=== PATIENT | male | born 1990 | race Caucasian/White ===

== ENCOUNTER 2017-11-08 22:57 | Emergency (ER) | payer MEDICAID ==
[~2017-11-08] VITALS: Ht 177.8 cm; Wt 116.3 kg
[~2017-11-08 22:57] MED LIST: ACET-890 PO; AMIT-189 PO; ASEN10TA SL; BENZ1TAB7 PO; CITA20TA11 PO; DOCU-28 PO; GABA600T PO; HALO5TAB PO; HYDR12.55 PO; HYDR50TA65 PO; LORA1TAB PO; METH1ADH6 TD; RISP1TAB13 PO
[2017-11-08] MEDS ORDERED: normal saline 1000ml 1,000 ML IV ONE (23:40)
[2017-11-09 00:14] LABS: BASOPHILS # (AUTO) 0.1 X10'3 (0-0.2); BASOPHILS % (AUTO) 0.8 % (0-1); EOSINOPHILS # (AUTO) 0.3 X10'3 (0-0.9); EOSINOPHILS % (AUTO) 2.9 % (0-6); HEMATOCRIT 40.8 % (42.0-52.0); HEMOGLOBIN 14.4 g/dl (14.0-17.9); LYMPHOCYTES # (AUTO) 3.4 X10'3 (1.1-4.8); LYMPHOCYTES % (AUTO) 35.8 % (21-51); MEAN CORPUSCULAR HGB CONC 35.4 % (33.0-36.5); MEAN CORPUSCULAR VOLUME 84.9 FL (78-98); MEAN PLATELET VOLUME 7.2 FL (7.4-10.4); MONOCYTES # (AUTO) 0.7 X10'3 (0-0.9); MONOCYTES % (AUTO) 7.2 % (2-12); NEUTROPHILS % (AUTO) 53.3 % (42-75); PLATELET COUNT 274 X10'3 (140-440); WHITE BLOOD COUNT 9.5 X10'3 (4.5-11.0)
[2017-11-09] MEDS ORDERED: acetaminophen 325mg tablet PO PRN (00:25)
[2017-11-09 00:38] LABS: ALANINE AMINOTRANSFERASE 39 U/L (12-78); ALBUMIN 4.1 G/DL (3.4-5.0); ALBUMIN/GLOBULIN RATIO 1.2 (1.1-1.5); ALKALINE PHOSPHATASE 62 IU/L (46-116); ANION GAP 13 (8-16); ASPARTATE AMINO TRANSFERASE 34 U/L (10-37); BILIRUBIN,TOTAL 0.5 MG/DL (0.1-1.0); BLOOD UREA NITROGEN 18 MG/DL (7-18); BUN/CREATININE RATIO 15.7 (5.4-32.0); CALCIUM 8.9 MG/DL (8.5-10.1); CHLORIDE 105 MMOL/L (99-107); CREATINE KINASE 616 U/L (39-308); CREATININE 1.15 MG/DL (0.60-1.10); ETHANOL < 0.010 GM/DL (0.0-0.010); GLUCOSE 112 MG/DL (70-104); POTASSIUM 3.3 MMOL/L (3.5-5.1); SODIUM 144 MMOL/L (135-145); TOTAL CARBON DIOXIDE 26.2 MMOL/L (24-32); TOTAL PROTEIN 7.6 G/DL (6.4-8.2); eGFR 77 ML/MIN
[2017-11-09 00:47] LABS: ACETAMINOPHEN < 2.0 UG/ML (10-30)
[2017-11-09 02:02] LABS: CLARITY,URINE Clear (Clear); COLOR,URINE Yellow (Yellow); GLUCOSE, URINE Negative (Neg); KETONES,URINE Negative (Neg); LEUKOCYTE ESTERASE ,URINE Negative (Neg); NITRITES, URINE Negative (Neg); OCCULT BLOOD,URINE Negative (Neg); PROTEIN,URINE Negative (Neg)
[2017-11-09 02:04] LABS: UA COLLECTION TYPE STRAIGHT CATH
[2017-11-09 02:40] LABS: URINE AMPHETAMINE SCREEN POSITIVE (Neg); URINE BARBITUATE SCREEN NEGATIVE (Neg); URINE BENZODIAZEPINES SCREEN NEGATIVE (Neg); URINE CANNABINOID SCREEN NEGATIVE (Neg); URINE COCAINE SCREEN NEGATIVE (Neg); URINE METHADONE SCREEN NEGATIVE (Neg); URINE OPIATE SCREEN NEGATIVE (Neg); URINE PHENCYCLIDINE SCREEN NEGATIVE (Neg)
[2017-11-09 03:26] VITALS: BP 112/54
== END 2017-11-09 03:28 | disposition home or self-care (01) ==
LOC: ER 22:58
DX: F20.9 Schizophrenia, unspecified (principal); F31.9 Bipolar disorder, unspecified; F41.9 Anxiety disorder, unspecified; F15.10 Other stimulant abuse, uncomplicated; F12.10 Cannabis abuse, uncomplicated; F17.200 Nicotine dependence, unspecified, uncomplicated; Z88.8 Allergy status to other drugs, medicaments and biological substances
CPT/HCPCS: 36415; 80053; 80305; 80320; 80329; 81003; 82550; 84443; 85025; 96360; 99284; A4353

== ENCOUNTER 2017-12-30 20:41 | Emergency (ER) | payer MEDICAID ==
[~2017-12-30] VITALS: Ht 180.3 cm; Wt 109.1 kg
[~2017-12-30 20:41] MED LIST changes: -AMIT-189 PO; -ASEN10TA SL; -BENZ1TAB7 PO; -CITA20TA11 PO; -DOCU-28 PO; -GABA600T PO; -HALO5TAB PO; -HYDR12.55 PO; -HYDR50TA65 PO; -LORA1TAB PO; -METH1ADH6 TD; -RISP1TAB13 PO
[2017-12-30 21:54] LABS: URINE AMPHETAMINE SCREEN NEGATIVE (Neg); URINE BARBITUATE SCREEN NEGATIVE (Neg); URINE BENZODIAZEPINES SCREEN NEGATIVE (Neg); URINE CANNABINOID SCREEN NEGATIVE (Neg); URINE COCAINE SCREEN NEGATIVE (Neg); URINE METHADONE SCREEN NEGATIVE (Neg); URINE OPIATE SCREEN NEGATIVE (Neg); URINE PHENCYCLIDINE SCREEN NEGATIVE (Neg)
[2017-12-30 22:15] LABS: BASOPHILS % (AUTO) 0.4 % (0-1); EOSINOPHILS # (AUTO) 0.3 X10'3 (0-0.9); EOSINOPHILS % (AUTO) 3.5 % (0-6); HEMATOCRIT 42.6 % (42.0-52.0); HEMOGLOBIN 14.7 g/dl (14.0-17.9); LYMPHOCYTES # (AUTO) 2.5 X10'3 (1.1-4.8); LYMPHOCYTES % (AUTO) 30.2 % (21-51); MEAN CORPUSCULAR HEMOGLOBIN 29.9 PG (27.0-31.0); MEAN CORPUSCULAR HGB CONC 34.6 % (33.0-36.5); MEAN CORPUSCULAR VOLUME 86.3 FL (78-98); MEAN PLATELET VOLUME 6.9 FL (7.4-10.4); MONOCYTES # (AUTO) 0.4 X10'3 (0-0.9); MONOCYTES % (AUTO) 5.2 % (2-12); NEUTROPHILS # (AUTO) 5.1 X10'3 (1.8-7.7); NEUTROPHILS % (AUTO) 60.7 % (42-75); PLATELET COUNT 285 X10'3 (140-440); RED BLOOD COUNT 4.93 X10'6 (4.70-6.10); WHITE BLOOD COUNT 8.3 X10'3 (4.5-11.0)
[2017-12-30 22:30] LABS: ALANINE AMINOTRANSFERASE 34 U/L (12-78); ALBUMIN 3.9 G/DL (3.4-5.0); ALBUMIN/GLOBULIN RATIO 1.1 (1.1-1.5); ALKALINE PHOSPHATASE 78 IU/L (46-116); ANION GAP 14 (8-16); ASPARTATE AMINO TRANSFERASE 16 U/L (10-37); BILIRUBIN,TOTAL 0.4 MG/DL (0.1-1.0); BLOOD UREA NITROGEN 15 MG/DL (7-18); BUN/CREATININE RATIO 17.2 (5.4-32.0); CHLORIDE 103 MMOL/L (99-107); CREATININE 0.87 MG/DL (0.60-1.10); ETHANOL < 0.010 GM/DL (0.0-0.010); GLUCOSE 98 MG/DL (70-104); SODIUM 141 MMOL/L (135-145); TOTAL CARBON DIOXIDE 24.5 MMOL/L (24-32); TOTAL PROTEIN 7.4 G/DL (6.4-8.2); eGFR > 90 ML/MIN
[2017-12-30 23:52] VITALS: BP 134/77
== END 2017-12-31 00:09 | disposition home or self-care (01) ==
LOC: ER 20:42
DX: F25.9 Schizoaffective disorder, unspecified (principal); F41.9 Anxiety disorder, unspecified; F31.9 Bipolar disorder, unspecified; G89.29 Other chronic pain; I10 Essential (primary) hypertension; F12.10 Cannabis abuse, uncomplicated; F15.10 Other stimulant abuse, uncomplicated; Z59.0 Homelessness; Z56.0 Unemployment, unspecified; Z88.8 Allergy status to other drugs, medicaments and biological substances; Z79.899 Other long term (current) drug therapy
CPT/HCPCS: 36415; 80053; 80305; 80320; 82948; 85025; 99284

== ENCOUNTER 2018-08-15 13:00 | Emergency (ER) | payer MEDICAID ==
[~2018-08-15] VITALS: Ht 180.3 cm; Wt 109.0 kg
[2018-08-15 13:34] LABS: BASOPHILS # (AUTO) 0.1 X10'3 (0-0.2); BASOPHILS % (AUTO) 0.8 % (0-1); EOSINOPHILS # (AUTO) 0.2 X10'3 (0-0.9); EOSINOPHILS % (AUTO) 2.2 % (0-6); HEMATOCRIT 43.9 % (42.0-52.0); HEMOGLOBIN 14.6 g/dl (14.0-17.9); LYMPHOCYTES # (AUTO) 2.1 X10'3 (1.1-4.8); LYMPHOCYTES % (AUTO) 29.3 % (21-51); MEAN CORPUSCULAR HEMOGLOBIN 28.9 PG (27.0-31.0); MEAN CORPUSCULAR HGB CONC 33.3 % (33.0-36.5); MEAN CORPUSCULAR VOLUME 86.7 FL (78-98); MEAN PLATELET VOLUME 7.5 FL (7.4-10.4); MONOCYTES # (AUTO) 0.4 X10'3 (0-0.9); MONOCYTES % (AUTO) 5.9 % (2-12); NEUTROPHILS # (AUTO) 4.4 X10'3 (1.8-7.7); NEUTROPHILS % (AUTO) 61.8 % (42-75); PLATELET COUNT 301 X10'3 (140-440); RED BLOOD COUNT 5.06 X10'6 (4.70-6.10); RED CELL DISTRIBUTION WIDTH 13.2 % (11.5-14.5); WHITE BLOOD COUNT 7.1 X10'3 (4.5-11.0)
[2018-08-15 13:55] LABS: ALANINE AMINOTRANSFERASE 41 U/L (12-78); ALBUMIN 4.4 G/DL (3.4-5.0); ALBUMIN/GLOBULIN RATIO 1.5 (1.1-1.5); ALKALINE PHOSPHATASE 81 IU/L (46-116); ANION GAP 10 (8-16); ASPARTATE AMINO TRANSFERASE 30 U/L (10-37); BILIRUBIN,TOTAL 0.6 MG/DL (0.1-1.0); BLOOD UREA NITROGEN 11 MG/DL (7-18); BUN/CREATININE RATIO 10.9 (5.4-32.0); CALCIUM 9.1 MG/DL (8.5-10.1); CHLORIDE 103 MMOL/L (99-107); CREATININE 1.01 MG/DL (0.60-1.10); GLUCOSE 93 MG/DL (70-104); POTASSIUM 3.5 MMOL/L (3.5-5.1); SODIUM 140 MMOL/L (135-145); TOTAL CARBON DIOXIDE 26.7 MMOL/L (24-32); TOTAL PROTEIN 7.3 G/DL (6.4-8.2); eGFR 89 ML/MIN
[2018-08-15 14:05] LABS: ETHANOL < 0.010 GM/DL (0.0-0.010)
[2018-08-15] MEDS ORDERED: NO HOME MEDS (14:49)
[2018-08-15] MEDS ORDERED: risperiDONE 2mg tablet PO ONE (16:05)
[2018-08-15 18:03] LABS: CLARITY,URINE CLEAR (Clear); COLOR,URINE YELLOW (Yellow); GLUCOSE, URINE NEGATIVE (Neg); KETONES,URINE 15 mg/dl (Neg); LEUKOCYTE ESTERASE ,URINE NEGATIVE (Neg); NITRITES, URINE NEGATIVE (Neg); OCCULT BLOOD,URINE NEGATIVE (Neg); PROTEIN,URINE NEGATIVE (Neg); UROBILINOGEN,URINE 0.2 E.U/dL (0.2-1.0)
[2018-08-15 18:07] LABS: UA COLLECTION TYPE CLN CATCH MIDSTREAM
[2018-08-15 18:13] LABS: URINE AMPHETAMINE SCREEN POSITIVE (Neg); URINE BARBITUATE SCREEN NEGATIVE (Neg); URINE BENZODIAZEPINES SCREEN NEGATIVE (Neg); URINE CANNABINOID SCREEN NEGATIVE (Neg); URINE COCAINE SCREEN NEGATIVE (Neg); URINE METHADONE SCREEN NEGATIVE (Neg); URINE OPIATE SCREEN NEGATIVE (Neg); URINE PHENCYCLIDINE SCREEN NEGATIVE (Neg)
[2018-08-15] MEDS ORDERED: risperiDONE 2mg tablet PO SCH (21:00)
[2018-08-16 12:26] VITALS: BP 110/60
== END 2018-08-16 12:15 ==
LOC: ER 13:01
DX: F20.9 Schizophrenia, unspecified (principal); F32.9 Major depressive disorder, single episode, unspecified; F41.9 Anxiety disorder, unspecified; I10 Essential (primary) hypertension; G89.29 Other chronic pain; F15.90 Other stimulant use, unspecified, uncomplicated; Z88.8 Allergy status to other drugs, medicaments and biological substances; Z59.0 Homelessness; Z56.0 Unemployment, unspecified
CPT/HCPCS: 36415; 80053; 80305; 80320; 81003; 84443; 85025; 99285

== ENCOUNTER 2018-09-05 19:33 | Emergency (ER) | payer MEDICAID ==
[~2018-09-05] VITALS: Ht 180.3 cm; Wt 81.8 kg
[~2018-09-05 19:33] MED LIST changes: -ACET-890 PO; +NO HOME MEDS
[2018-09-05 19:58] VITALS: BP 144/101
[2018-09-05 21:06] LABS: BASOPHILS % (AUTO) 0.5 % (0-1); EOSINOPHILS # (AUTO) 0.4 X10'3 (0-0.9); EOSINOPHILS % (AUTO) 5.6 % (0-6); HEMATOCRIT 44.5 % (42.0-52.0); HEMOGLOBIN 14.7 g/dl (14.0-17.9); LYMPHOCYTES # (AUTO) 1.5 X10'3 (1.1-4.8); LYMPHOCYTES % (AUTO) 21.9 % (21-51); MEAN CORPUSCULAR HEMOGLOBIN 29.1 PG (27.0-31.0); MEAN CORPUSCULAR HGB CONC 33.2 % (33.0-36.5); MEAN CORPUSCULAR VOLUME 87.7 FL (78-98); MEAN PLATELET VOLUME 7.6 FL (7.4-10.4); MONOCYTES # (AUTO) 0.5 X10'3 (0-0.9); MONOCYTES % (AUTO) 7.2 % (2-12); NEUTROPHILS # (AUTO) 4.6 X10'3 (1.8-7.7); NEUTROPHILS % (AUTO) 64.8 % (42-75); PLATELET COUNT 290 X10'3 (140-440); RED BLOOD COUNT 5.07 X10'6 (4.70-6.10); RED CELL DISTRIBUTION WIDTH 13.1 % (11.5-14.5)
[2018-09-05 21:19] LABS: ALANINE AMINOTRANSFERASE 35 U/L (12-78); ALBUMIN 4.1 G/DL (3.4-5.0); ALBUMIN/GLOBULIN RATIO 1.2 (1.1-1.5); ALKALINE PHOSPHATASE 91 IU/L (46-116); ANION GAP 10 (8-16); ASPARTATE AMINO TRANSFERASE 28 U/L (10-37); BILIRUBIN,TOTAL 0.4 MG/DL (0.1-1.0); BLOOD UREA NITROGEN 11 MG/DL (7-18); BUN/CREATININE RATIO 11.3 (5.4-32.0); CALCIUM 8.9 MG/DL (8.5-10.1); CHLORIDE 102 MMOL/L (99-107); CREATININE 0.97 MG/DL (0.60-1.10); GLUCOSE 86 MG/DL (70-104); POTASSIUM 3.4 MMOL/L (3.5-5.1); SODIUM 141 MMOL/L (135-145); TOTAL CARBON DIOXIDE 29.1 MMOL/L (24-32); TOTAL PROTEIN 7.5 G/DL (6.4-8.2); eGFR > 90 ML/MIN
--- NOTE | 2018-09-05 21:20 | NUR ---
PT TALKING TO SELF WHILE WAITING FOR TELE PSYCH.
[2018-09-05 21:30] LABS: ETHANOL < 0.010 GM/DL (0.0-0.010)
--- NOTE | 2018-09-05 22:09 | NUR ---
REPORT GIVEN TO SOC MD, WILL BE TALKING TO PT SHORTLY.
--- NOTE | 2018-09-05 22:17 | NUR ---
Pt engaged with SOC telepsychiatrist at this time.
--- NOTE | 2018-09-05 22:36 | NUR ---
Pt informed this group underwriter that he had not eaten lunch or dinner. This group underwriter provided pt with yogurt and apoorva crackers.
--- NOTE | 2018-09-05 22:43 | NUR ---
TELE PSYCH CONSULT COMPLETE, AWAITING REPORT.
--- NOTE | 2018-09-05 23:21 | NUR ---
TELE PSYCH RECOMMENDS DC, DR JENSEN WORKING ON DC INSTRUCTIONS.
== END 2018-09-05 23:37 | disposition home or self-care (01) ==
LOC: ER 19:33
DX: F23 Brief psychotic disorder (principal); F15.10 Other stimulant abuse, uncomplicated; F22 Delusional disorders; I10 Essential (primary) hypertension; G89.29 Other chronic pain; F41.9 Anxiety disorder, unspecified; F31.9 Bipolar disorder, unspecified; Z59.0 Homelessness; Z56.0 Unemployment, unspecified; Z88.8 Allergy status to other drugs, medicaments and biological substances
CPT/HCPCS: 36415; 80053; 80320; 84443; 85025; 99284

== ENCOUNTER 2018-10-20 05:11 | Emergency (ER) | payer MEDICAID ==
[~2018-10-20] VITALS: Ht 177.8 cm; Wt 100.0 kg
[2018-10-20 05:15] VITALS: BP 129/84
--- NOTE | 2018-10-20 05:22 | NUR ---
PLACED PATIENT IN RAP ROOM PER CN
[2018-10-20 06:43] LABS: BASOPHILS % (AUTO) 0.4 % (0-1); EOSINOPHILS # (AUTO) 0.1 X10'3 (0-0.9); EOSINOPHILS % (AUTO) 1.6 % (0-6); HEMATOCRIT 43.5 % (42.0-52.0); LYMPHOCYTES # (AUTO) 1.9 X10'3 (1.1-4.8); LYMPHOCYTES % (AUTO) 21.2 % (21-51); MEAN CORPUSCULAR HEMOGLOBIN 29.9 PG (27.0-31.0); MEAN CORPUSCULAR HGB CONC 34.5 g/dL (33.0-36.5); MEAN CORPUSCULAR VOLUME 86.8 FL (78-98); MEAN PLATELET VOLUME 6.8 FL (7.4-10.4); MONOCYTES # (AUTO) 0.4 X10'3 (0-0.9); MONOCYTES % (AUTO) 4.5 % (2-12); NEUTROPHILS # (AUTO) 6.5 X10'3 (1.8-7.7); NEUTROPHILS % (AUTO) 72.3 % (42-75); PLATELET COUNT 328 X10'3 (140-440); RED CELL DISTRIBUTION WIDTH 13.8 % (11.5-14.5)
--- NOTE | 2018-10-20 06:45 | NUR ---
Assumed care of patient at 0644, proceeded to assess patient in RAP assessment room and patient had eloped per registration. Will contact [employer] regarding patient elopement.
[2018-10-20 06:54] LABS: ALANINE AMINOTRANSFERASE 26 U/L (12-78); ALBUMIN 4.5 G/DL (3.4-5.0); ALBUMIN/GLOBULIN RATIO 1.3 (1.1-1.5); ALKALINE PHOSPHATASE 72 IU/L (46-116); ANION GAP 12 (8-16); ASPARTATE AMINO TRANSFERASE 22 U/L (10-37); BILIRUBIN,TOTAL 0.6 MG/DL (0.1-1.0); BLOOD UREA NITROGEN 16 MG/DL (7-18); BUN/CREATININE RATIO 16.2 (5.4-32.0); CALCIUM 9.1 MG/DL (8.5-10.1); CHLORIDE 101 MMOL/L (99-107); CREATININE 0.99 MG/DL (0.60-1.10); ETHANOL < 0.010 GM/DL (0.0-0.010); GLUCOSE 92 MG/DL (70-104); SODIUM 140 MMOL/L (135-145); eGFR > 90 ML/MIN
--- NOTE | 2018-10-20 07:39 | NUR ---
Spoke with [employer] regarding elopment, information regarding patients attire and concern regarding elopement given to [employer] dispatcher.
== END 2018-10-20 07:59 | disposition left against medical advice (07) ==
LOC: ER 05:12
DX: R45.851 Suicidal ideations (principal); R45.850 Homicidal ideations; F31.9 Bipolar disorder, unspecified; F41.9 Anxiety disorder, unspecified; F20.9 Schizophrenia, unspecified; I10 Essential (primary) hypertension; G89.29 Other chronic pain; F15.90 Other stimulant use, unspecified, uncomplicated; Z56.0 Unemployment, unspecified; Z59.0 Homelessness; Z88.8 Allergy status to other drugs, medicaments and biological substances
CPT/HCPCS: 36415; 80053; 80320; 85025; 99284

== ENCOUNTER 2018-11-04 21:05 | Emergency (ER) | payer MEDICAID ==
[~2018-11-04] VITALS: Ht 180.3 cm; Wt 107.0 kg
[2018-11-04 21:13] VITALS: BP 142/73
--- NOTE | 2018-11-04 21:50 | NUR ---
PT belongings were taken and the belonging log was filled out. PT's belongings are in ambulance bay lockers.
[2018-11-04 22:25] LABS: BASOPHILS # (AUTO) 0.1 X10'3 (0-0.2); BASOPHILS % (AUTO) 0.8 % (0-1); EOSINOPHILS # (AUTO) 0.2 X10'3 (0-0.9); EOSINOPHILS % (AUTO) 1.8 % (0-6); HEMATOCRIT 41.3 % (42.0-52.0); HEMOGLOBIN 14.1 g/dl (14.0-17.9); LYMPHOCYTES # (AUTO) 2.8 X10'3 (1.1-4.8); LYMPHOCYTES % (AUTO) 32.1 % (21-51); MEAN CORPUSCULAR HEMOGLOBIN 29.4 PG (27.0-31.0); MEAN CORPUSCULAR HGB CONC 34.2 g/dL (33.0-36.5); MEAN CORPUSCULAR VOLUME 85.8 FL (78-98); MEAN PLATELET VOLUME 6.4 FL (7.4-10.4); MONOCYTES # (AUTO) 0.6 X10'3 (0-0.9); MONOCYTES % (AUTO) 6.6 % (2-12); NEUTROPHILS # (AUTO) 5.1 X10'3 (1.8-7.7); NEUTROPHILS % (AUTO) 58.7 % (42-75); PLATELET COUNT 398 X10'3 (140-440); RED BLOOD COUNT 4.81 X10'6 (4.70-6.10); RED CELL DISTRIBUTION WIDTH 13.6 % (11.5-14.5); WHITE BLOOD COUNT 8.6 X10'3 (4.5-11.0)
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
[2018-11-04 22:33] LABS: ALANINE AMINOTRANSFERASE 33 U/L (12-78); ALBUMIN 3.8 G/DL (3.4-5.0); ALKALINE PHOSPHATASE 80 IU/L (46-116); ANION GAP 8 (8-16); ASPARTATE AMINO TRANSFERASE 21 U/L (10-37); BILIRUBIN,TOTAL 0.4 MG/DL (0.1-1.0); BLOOD UREA NITROGEN 10 MG/DL (7-18); BUN/CREATININE RATIO 9.9 (5.4-32.0); CALCIUM 8.9 MG/DL (8.5-10.1); CHLORIDE 101 MMOL/L (99-107); CREATININE 1.01 MG/DL (0.60-1.10); GLUCOSE 72 MG/DL (70-104); POTASSIUM 3.7 MMOL/L (3.5-5.1); SODIUM 137 MMOL/L (135-145); TOTAL CARBON DIOXIDE 28.2 MMOL/L (24-32); TOTAL PROTEIN 7.5 G/DL (6.4-8.2); eGFR 89 ML/MIN
[2018-11-04 22:42] LABS: ETHANOL < 0.010 GM/DL (0.0-0.010)
[2018-11-04 22:49] LABS: URINE AMPHETAMINE SCREEN POSITIVE (Neg); URINE BARBITUATE SCREEN NEGATIVE (Neg); URINE BENZODIAZEPINES SCREEN NEGATIVE (Neg); URINE CANNABINOID SCREEN NEGATIVE (Neg); URINE COCAINE SCREEN NEGATIVE (Neg); URINE METHADONE SCREEN NEGATIVE (Neg); URINE OPIATE SCREEN NEGATIVE (Neg); URINE PHENCYCLIDINE SCREEN NEGATIVE (Neg)
--- NOTE | 2018-11-04 23:45 | NUR ---
Report rec'd, assumed care of patient. Patient escorted by Tech to ER OF 27. Assessment completed, and sack meal provided.
--- NOTE | 2018-11-04 23:55 | NUR ---
Telepsych consult initiated.
--- NOTE | 2018-11-05 00:10 | NUR ---
Rec'd call from telepsych provider, report endorsed.
--- NOTE | 2018-11-05 00:24 | NUR ---
Telepsych consult completed.
== END 2018-11-05 01:14 | disposition home or self-care (01) ==
LOC: ER 21:06
DX: F28 Other psychotic disorder not due to a substance or known physiological condition (principal); R45.851 Suicidal ideations; F15.10 Other stimulant abuse, uncomplicated; I10 Essential (primary) hypertension; G89.29 Other chronic pain; F41.9 Anxiety disorder, unspecified; F31.9 Bipolar disorder, unspecified; F12.90 Cannabis use, unspecified, uncomplicated; Z56.0 Unemployment, unspecified; Z59.0 Homelessness; Z88.8 Allergy status to other drugs, medicaments and biological substances; Z88.6 Allergy status to analgesic agent
CPT/HCPCS: 36415; 80053; 80305; 80320; 85025; 99284

== ENCOUNTER 2018-12-12 13:40 | Emergency (ER) | payer MEDICAID ==
[~2018-12-12] VITALS: Ht 180.3 cm; Wt 104.5 kg
[2018-12-12 14:58] LABS: BASOPHILS # (AUTO) 0.1 X10'3 (0-0.2); BASOPHILS % (AUTO) 0.9 % (0-1); EOSINOPHILS # (AUTO) 0.3 X10'3 (0-0.9); EOSINOPHILS % (AUTO) 5.4 % (0-6); HEMATOCRIT 40.7 % (42.0-52.0); HEMOGLOBIN 13.6 g/dl (14.0-17.9); LYMPHOCYTES # (AUTO) 2.1 X10'3 (1.1-4.8); LYMPHOCYTES % (AUTO) 37.4 % (21-51); MEAN CORPUSCULAR HEMOGLOBIN 28.9 PG (27.0-31.0); MEAN CORPUSCULAR HGB CONC 33.3 g/dL (33.0-36.5); MEAN CORPUSCULAR VOLUME 86.8 FL (78-98); MONOCYTES # (AUTO) 0.3 X10'3 (0-0.9); MONOCYTES % (AUTO) 5.9 % (2-12); NEUTROPHILS # (AUTO) 2.8 X10'3 (1.8-7.7); NEUTROPHILS % (AUTO) 50.4 % (42-75); PLATELET COUNT 235 X10'3 (140-440); RED BLOOD COUNT 4.69 X10'6 (4.70-6.10); RED CELL DISTRIBUTION WIDTH 13.6 % (11.5-14.5); WHITE BLOOD COUNT 5.5 X10'3 (4.5-11.0)
[2018-12-12] MEDS ORDERED: NO HOME MEDS (15:00)
[2018-12-12 15:08] LABS: ALANINE AMINOTRANSFERASE 44 U/L (12-78); ALBUMIN 3.6 G/DL (3.4-5.0); ALBUMIN/GLOBULIN RATIO 1.1 (1.1-1.5); ALKALINE PHOSPHATASE 72 IU/L (46-116); ANION GAP 8 (8-16); ASPARTATE AMINO TRANSFERASE 37 U/L (10-37); BILIRUBIN,TOTAL 0.3 MG/DL (0.1-1.0); BLOOD UREA NITROGEN 13 MG/DL (7-18); BUN/CREATININE RATIO 14.8 (5.4-32.0); CALCIUM 8.8 MG/DL (8.5-10.1); CHLORIDE 103 MMOL/L (99-107); CREATININE 0.88 MG/DL (0.60-1.10); ETHANOL < 0.010 GM/DL (0.0-0.010); GLUCOSE 88 MG/DL (70-104); SODIUM 139 MMOL/L (135-145); TOTAL CARBON DIOXIDE 28.1 MMOL/L (24-32); TOTAL PROTEIN 6.8 G/DL (6.4-8.2); eGFR > 90 ML/MIN
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
--- NOTE | 2018-12-12 16:08 | NUR ---
Pt. moved into room 16 from hallway 13. Report given to Lopez ALAS.
[2018-12-12 16:15] LABS: CLARITY,URINE CLEAR (Clear); COLOR,URINE YELLOW (Yellow); GLUCOSE, URINE NEGATIVE (Neg); KETONES,URINE NEGATIVE (Neg); LEUKOCYTE ESTERASE ,URINE NEGATIVE (Neg); NITRITES, URINE NEGATIVE (Neg); OCCULT BLOOD,URINE NEGATIVE (Neg); PROTEIN,URINE NEGATIVE (Neg); UROBILINOGEN,URINE 0.2 E.U/dL (0.2-1.0)
[2018-12-12 16:20] LABS: UA COLLECTION TYPE CLN CATCH MIDSTREAM
[2018-12-12 16:28] LABS: URINE AMPHETAMINE SCREEN NEGATIVE (Neg); URINE BARBITUATE SCREEN NEGATIVE (Neg); URINE BENZODIAZEPINES SCREEN NEGATIVE (Neg); URINE CANNABINOID SCREEN NEGATIVE (Neg); URINE COCAINE SCREEN NEGATIVE (Neg); URINE METHADONE SCREEN NEGATIVE (Neg); URINE OPIATE SCREEN NEGATIVE (Neg); URINE PHENCYCLIDINE SCREEN NEGATIVE (Neg)
--- NOTE | 2018-12-12 18:25 | NUR ---
Pt status just changed from 179 to 5150, per [facility] recommendation. Pt reports S/I with an attempt by placing hand gun to head. Pt denies audio/visual hallucinations at this time. Pt reports new medication start in past 2 wks for Bipolar schizoaffective dx.
--- NOTE | 2018-12-13 05:30 | NUR ---
PT TRANSFERRED FROM ED16 TO OF21, ESCORTED BY SUSAN AND PAULA, pct
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
[2018-12-13] MEDS ORDERED: FLUoxetine 20mg capsule PO SCH (08:39)
[2018-12-13] MEDS ORDERED: propranolol 10mg tablet PO SCH (08:40)
--- NOTE | 2018-12-13 10:30 | NUR ---
Call received from Kurt Salcido RN, Charge Nurse [facility] for nurse to nurse report on patient.
[2018-12-13] MEDS ORDERED: FLUO20CA39 PO (10:52)
[2018-12-13] MEDS ORDERED: RISP4TAB7 PO (10:52)
[2018-12-13] MEDS ORDERED: PROP10TA10 PO (10:52)
--- NOTE | 2018-12-13 11:05 | NUR ---
Call received from Kurt Salcido RN, stating that patient had been accepted at [facility]. Jacklyn De Paz from [facility] notified. Discharge orders received from Dr. Agudelo.
[2018-12-13 11:26] VITALS: BP 100/54
[2018-12-13] MEDS ORDERED: risperiDONE 2mg tablet PO SCH (21:00)
== END 2018-12-13 11:32 ==
LOC: ER 13:41
DX: F32.9 Major depressive disorder, single episode, unspecified (principal); F41.9 Anxiety disorder, unspecified; F20.9 Schizophrenia, unspecified; I10 Essential (primary) hypertension; G89.29 Other chronic pain; F12.90 Cannabis use, unspecified, uncomplicated; F15.90 Other stimulant use, unspecified, uncomplicated; Z56.0 Unemployment, unspecified; Z59.0 Homelessness; Z88.8 Allergy status to other drugs, medicaments and biological substances
CPT/HCPCS: 36415; 80053; 80305; 80320; 81003; 85025; 99285

== ENCOUNTER 2018-12-13 10:30 | Inpatient (IN) | payer MEDICAID | END 2018-12-16 15:15 | disposition short-term general hospital (02) | LOC: ADULT MH 10:30 | DX: T14.91XA Suicide attempt, initial encounter (principal); F32.9 Major depressive disorder, single episode, unspecified ==

== ENCOUNTER 2018-12-20 11:58 | Emergency (ER) | payer MEDICAID ==
[~2018-12-20] VITALS: Ht 180.3 cm; Wt 86.0 kg
[~2018-12-20 11:58] MED LIST changes: +FLUO20CA22 PO; +HYDR-3686 PO; -NO HOME MEDS; +PALI3TAB5 PO; +PROP10TA10 PO; +RISP4TAB7 PO
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
[2018-12-20 13:00] LABS: URINE AMPHETAMINE SCREEN POSITIVE (Neg); URINE BARBITUATE SCREEN NEGATIVE (Neg); URINE BENZODIAZEPINES SCREEN NEGATIVE (Neg); URINE CANNABINOID SCREEN NEGATIVE (Neg); URINE COCAINE SCREEN NEGATIVE (Neg); URINE METHADONE SCREEN NEGATIVE (Neg); URINE OPIATE SCREEN NEGATIVE (Neg); URINE PHENCYCLIDINE SCREEN NEGATIVE (Neg)
[2018-12-20 13:00] LABS: BASOPHILS % (AUTO) 0.6 % (0-1); EOSINOPHILS # (AUTO) 0.2 X10'3 (0-0.9); EOSINOPHILS % (AUTO) 2.6 % (0-6); HEMOGLOBIN 13.9 g/dl (14.0-17.9); LYMPHOCYTES # (AUTO) 2.4 X10'3 (1.1-4.8); LYMPHOCYTES % (AUTO) 40.2 % (21-51); MEAN CORPUSCULAR HEMOGLOBIN 29.2 PG (27.0-31.0); MEAN CORPUSCULAR HGB CONC 33.9 g/dL (33.0-36.5); MEAN CORPUSCULAR VOLUME 86.2 FL (78-98); MEAN PLATELET VOLUME 6.9 FL (7.4-10.4); MONOCYTES # (AUTO) 0.5 X10'3 (0-0.9); MONOCYTES % (AUTO) 7.9 % (2-12); NEUTROPHILS # (AUTO) 2.9 X10'3 (1.8-7.7); NEUTROPHILS % (AUTO) 48.7 % (42-75); PLATELET COUNT 300 X10'3 (140-440); RED BLOOD COUNT 4.76 X10'6 (4.70-6.10); RED CELL DISTRIBUTION WIDTH 13.6 % (11.5-14.5)
[2018-12-20 13:07] LABS: ALANINE AMINOTRANSFERASE 33 U/L (12-78); ALBUMIN 4.1 G/DL (3.4-5.0); ALBUMIN/GLOBULIN RATIO 1.2 (1.1-1.5); ALKALINE PHOSPHATASE 73 IU/L (46-116); ANION GAP 9 (8-16); ASPARTATE AMINO TRANSFERASE 23 U/L (10-37); BILIRUBIN,TOTAL 0.8 MG/DL (0.1-1.0); BLOOD UREA NITROGEN 12 MG/DL (7-18); BUN/CREATININE RATIO 12.6 (5.4-32.0); CALCIUM 9.3 MG/DL (8.5-10.1); CHLORIDE 101 MMOL/L (99-107); CREATININE 0.95 MG/DL (0.60-1.10); ETHANOL < 0.010 GM/DL (0.0-0.010); GLUCOSE 96 MG/DL (70-104); POTASSIUM 3.8 MMOL/L (3.5-5.1); SODIUM 138 MMOL/L (135-145); TOTAL CARBON DIOXIDE 28.3 MMOL/L (24-32); TOTAL PROTEIN 7.6 G/DL (6.4-8.2); eGFR > 90 ML/MIN
[2018-12-20 13:11] LABS: CLARITY,URINE CLOUDY (Clear); COLOR,URINE YELLOW (Yellow); GLUCOSE, URINE NEGATIVE (Neg); KETONES,URINE NEGATIVE (Neg); LEUKOCYTE ESTERASE ,URINE NEGATIVE (Neg); NITRITES, URINE NEGATIVE (Neg); OCCULT BLOOD,URINE TRACE-INTACT (Neg); PH,URINE 8.5 (4.8-8.0); PROTEIN,URINE NEGATIVE (Neg); UROBILINOGEN,URINE 0.2 E.U/dL (0.2-1.0)
[2018-12-20 13:14] LABS: UA COLLECTION TYPE CLN CATCH MIDSTREAM
[2018-12-20] MEDS ORDERED: FLUO20CA39 PO (13:25)
[2018-12-20] MEDS ORDERED: PROP10TA10 PO (13:25)
[2018-12-20] MEDS ORDERED: HYDR-3686 PO (13:25)
[2018-12-20] MEDS ORDERED: RISP4TAB7 PO (13:25)
[2018-12-20] MEDS ORDERED: PALI6TAB PO (13:25)
[2018-12-20 13:29] LABS: MUCUS STRANDS FEW /LPF (Neg); SQUAMOUS EPITHELIAL CELL,UR FEW /LPF (FEW); WBC,URINE 0-4 /HPF (0-4)
[2018-12-20 13:30] LABS: AMORPHOUS PHOSPHATES 3+; BACTERIA,URINE NONE SEEN /HPF (Neg)
--- NOTE | 2018-12-20 13:39 | NUR ---
Called [facility] and spoke to Allison. She informed me their provider would not be seing this pt. Spoke with Dr Webb and got order for telepsych. SOC called and pt placed in queue.
[2018-12-20] MEDS ORDERED: hydrOXYzine 25 MG tablet PO PRN (13:55)
[2018-12-20 14:51] VITALS: BP 134/94
[2018-12-20] MEDS ORDERED: propranolol 10mg tablet PO SCH (20:00)
[2018-12-20] MEDS ORDERED: risperiDONE 2mg tablet PO SCH (21:00)
[2018-12-21] MEDS ORDERED: PALIPERIDONE 3 MG TAB.ER.24 PO SCH (08:00)
[2018-12-21] MEDS ORDERED: FLUoxetine 20mg capsule PO SCH (08:00)
== END 2018-12-20 14:54 | disposition home or self-care (01) ==
LOC: ER 11:58
DX: F15.20 Other stimulant dependence, uncomplicated (principal); I10 Essential (primary) hypertension; G89.29 Other chronic pain; F41.9 Anxiety disorder, unspecified; F20.9 Schizophrenia, unspecified; F31.9 Bipolar disorder, unspecified; F12.90 Cannabis use, unspecified, uncomplicated; Z59.0 Homelessness; Z56.0 Unemployment, unspecified; Z88.8 Allergy status to other drugs, medicaments and biological substances; Z79.899 Other long term (current) drug therapy
CPT/HCPCS: 36415; 80053; 80305; 80320; 81001; 85025; 99283

== ENCOUNTER 2019-01-06 16:36 | Emergency (ER) | payer MEDICAID ==
[~2019-01-06] VITALS: Ht 332.7 cm; Wt 81.8 kg
[~2019-01-06 16:36] MED LIST changes: -FLUO20CA22 PO; +FLUO20CA39 PO; -PALI3TAB5 PO; +PALI6TAB PO
--- NOTE | 2019-01-06 17:12 | NUR ---
Pt brought into ED by a friend w/a suicide plan to kill self w/a gun. Pt father two days ago and he reports he no longer wants to live. Pt brought to [facility] in street clothes from Triage. Personl property inventoried by ASCENCION Trinh and placed in [facility] locker. UA complete and labs drawn. Pt in bed on his right side w/his eyes closed.
[2019-01-06 17:32] LABS: BASOPHILS # (AUTO) 0.1 X10'3 (0-0.2); BASOPHILS % (AUTO) 1.1 % (0-1); EOSINOPHILS # (AUTO) 0.5 X10'3 (0-0.9); EOSINOPHILS % (AUTO) 6.7 % (0-6); HEMATOCRIT 42.2 % (42.0-52.0); HEMOGLOBIN 14.5 g/dl (14.0-17.9); LYMPHOCYTES # (AUTO) 2.7 X10'3 (1.1-4.8); LYMPHOCYTES % (AUTO) 39.7 % (21-51); MEAN CORPUSCULAR HEMOGLOBIN 29.7 PG (27.0-31.0); MEAN CORPUSCULAR HGB CONC 34.3 g/dL (33.0-36.5); MEAN CORPUSCULAR VOLUME 86.8 FL (78-98); MEAN PLATELET VOLUME 7.1 FL (7.4-10.4); MONOCYTES # (AUTO) 0.5 X10'3 (0-0.9); NEUTROPHILS # (AUTO) 3.1 X10'3 (1.8-7.7); NEUTROPHILS % (AUTO) 45.5 % (42-75); PLATELET COUNT 257 X10'3 (140-440); RED BLOOD COUNT 4.86 X10'6 (4.70-6.10); RED CELL DISTRIBUTION WIDTH 13.6 % (11.5-14.5); WHITE BLOOD COUNT 6.8 X10'3 (4.5-11.0)
[2019-01-06 17:43] LABS: ALANINE AMINOTRANSFERASE 24 U/L (12-78); ALBUMIN 3.5 G/DL (3.4-5.0); ALKALINE PHOSPHATASE 74 IU/L (46-116); ANION GAP 10 (8-16); ASPARTATE AMINO TRANSFERASE 13 U/L (10-37); BILIRUBIN,TOTAL 0.2 MG/DL (0.1-1.0); BLOOD UREA NITROGEN 9 MG/DL (7-18); BUN/CREATININE RATIO 9.9 (5.4-32.0); CALCIUM 8.7 MG/DL (8.5-10.1); CHLORIDE 105 MMOL/L (99-107); CREATININE 0.91 MG/DL (0.60-1.10); GLUCOSE 85 MG/DL (70-104); POTASSIUM 3.9 MMOL/L (3.5-5.1); SODIUM 142 MMOL/L (135-145); TOTAL CARBON DIOXIDE 27.4 MMOL/L (24-32); TOTAL PROTEIN 6.9 G/DL (6.4-8.2); eGFR > 90 ML/MIN
[2019-01-06 17:54] LABS: ETHANOL < 0.010 GM/DL (0.0-0.010)
[2019-01-06 17:57] LABS: CLARITY,URINE SLIGHTLY CLOUDY (Clear); COLOR,URINE YELLOW (Yellow); GLUCOSE, URINE NEGATIVE (Neg); KETONES,URINE NEGATIVE (Neg); LEUKOCYTE ESTERASE ,URINE NEGATIVE (Neg); NITRITES, URINE NEGATIVE (Neg); OCCULT BLOOD,URINE NEGATIVE (Neg); PROTEIN,URINE NEGATIVE (Neg); UROBILINOGEN,URINE 0.2 E.U/dL (0.2-1.0)
[2019-01-06] MEDS ORDERED: RISP1TAB3 PO (17:58)
[2019-01-06] MEDS ORDERED: HYDR50TA65 PO (17:58)
[2019-01-06] MEDS ORDERED: FLUO-1 PO (17:58)
[2019-01-06] MEDS ORDERED: PALI6TAB6 PO (17:58)
[2019-01-06] MEDS ORDERED: PROP20TA6 PO (17:58)
[2019-01-06 18:04] LABS: URINE AMPHETAMINE SCREEN POSITIVE (Neg); URINE BARBITUATE SCREEN NEGATIVE (Neg); URINE BENZODIAZEPINES SCREEN NEGATIVE (Neg); URINE CANNABINOID SCREEN NEGATIVE (Neg); URINE COCAINE SCREEN NEGATIVE (Neg); URINE METHADONE SCREEN NEGATIVE (Neg); URINE OPIATE SCREEN NEGATIVE (Neg); URINE PHENCYCLIDINE SCREEN NEGATIVE (Neg)
[2019-01-06 18:20] LABS: UA COLLECTION TYPE VOIDED
[2019-01-06 18:28] LABS: AMORPHOUS PHOSPHATES 4+; BACTERIA,URINE NONE SEEN /HPF (Neg); RBC,URINE NONE SEEN /HPF (0-2); SQUAMOUS EPITHELIAL CELL,UR FEW /LPF (FEW); WBC,URINE 0-4 /HPF (0-4)
[2019-01-06] MEDS ORDERED: propranolol 10mg tablet PO SCH (20:00)
--- NOTE | 2019-01-06 20:36 | NUR ---
Pt is resting in bed, pt states he is still suicidal and his plan is to shoot himself. Pt has a right sided facial droop, physicians aware, being seen as note is written.
--- NOTE | 2019-01-06 23:30 | NUR ---
Physicians saw pt, wanted telesyph ordered. Boat Mechanic ordered telesyph and called. Waiting call back. At this time pt is resting in bed quietly on R side.
--- NOTE | 2019-01-07 00:52 | NUR ---
Telespych completed. Pt now resting in bed.
[2019-01-07 03:27] VITALS: BP 108/54
[2019-01-07] MEDS ORDERED: FLUoxetine 20mg capsule PO SCH (08:00)
[2019-01-07] MEDS ORDERED: MECL-111 PO (19:47)
== END 2019-01-07 03:03 | disposition home or self-care (01) ==
LOC: ER 16:36
DX: R45.851 Suicidal ideations (principal); F31.9 Bipolar disorder, unspecified; I10 Essential (primary) hypertension; G89.29 Other chronic pain; F41.9 Anxiety disorder, unspecified; F20.9 Schizophrenia, unspecified; F12.90 Cannabis use, unspecified, uncomplicated; F15.90 Other stimulant use, unspecified, uncomplicated; Z59.0 Homelessness; Z56.0 Unemployment, unspecified; Z88.8 Allergy status to other drugs, medicaments and biological substances; Z79.899 Other long term (current) drug therapy
CPT/HCPCS: 36415; 80053; 80305; 80320; 81001; 84443; 85025; 99284

== ENCOUNTER 2019-03-22 22:51 | Emergency (ER) | payer MEDICAID ==
[~2019-03-22] VITALS: Ht 177.8 cm; Wt 86.6 kg
[~2019-03-22 22:51] MED LIST changes: -HYDR-3686 PO; +MECL-111 PO; -PALI6TAB PO; -PROP10TA10 PO; +PROP20TA6 PO; +RISP1TAB3 PO; -RISP4TAB7 PO
[2019-03-22] MEDS ORDERED: HYDR-4383 PO (23:35)
[2019-03-22 23:54] VITALS: BP 131/75
== END 2019-03-22 23:50 | disposition home or self-care (01) ==
LOC: ER 22:51
DX: S02.66 Fracture of symphysis of mandible (principal); G89.18 Other acute postprocedural pain; R68.84 Jaw pain; I10 Essential (primary) hypertension; G89.29 Other chronic pain; F41.9 Anxiety disorder, unspecified; F31.9 Bipolar disorder, unspecified; F20.9 Schizophrenia, unspecified; F12.90 Cannabis use, unspecified, uncomplicated; F15.90 Other stimulant use, unspecified, uncomplicated; Z88.8 Allergy status to other drugs, medicaments and biological substances; Z79.899 Other long term (current) drug therapy; Z59.0 Homelessness; Z56.0 Unemployment, unspecified; Y04.2XXD Assault by strike against or bumped into by another person, subsequent encounter
CPT/HCPCS: 99283

== ENCOUNTER 2019-03-25 09:13 | Emergency (ER) | payer MEDICAID ==
[~2019-03-25] VITALS: Ht 180.3 cm; Wt 105.2 kg
[~2019-03-25 09:13] MED LIST changes: +HYDR-4383 PO
--- NOTE | 2019-03-25 09:24 | NUR ---
DUSTIN CHARGE NURSE AWARE OF PT, PT STATES UNABLE TO PROVIDE URINE SAMPLE JUST WENT, PT PLACED IN RAP WAITING ROOM WHILE BED 13 IS BEING PREPARED. PT IS CALM AND AGREEABLE TO PLAN
[2019-03-25 09:51] LABS: BASOPHILS # (AUTO) 0.1 X10'3 (0-0.2); BASOPHILS % (AUTO) 0.6 % (0-1); EOSINOPHILS # (AUTO) 0.4 X10'3 (0-0.9); EOSINOPHILS % (AUTO) 4.7 % (0-6); HEMATOCRIT 40.1 % (42.0-52.0); HEMOGLOBIN 13.7 g/dl (14.0-17.9); LYMPHOCYTES # (AUTO) 2.3 X10'3 (1.1-4.8); LYMPHOCYTES % (AUTO) 29.3 % (21-51); MEAN CORPUSCULAR HEMOGLOBIN 29.4 PG (27.0-31.0); MEAN CORPUSCULAR VOLUME 86.2 FL (78-98); MEAN PLATELET VOLUME 6.8 FL (7.4-10.4); MONOCYTES # (AUTO) 0.5 X10'3 (0-0.9); MONOCYTES % (AUTO) 5.9 % (2-12); NEUTROPHILS # (AUTO) 4.7 X10'3 (1.8-7.7); NEUTROPHILS % (AUTO) 59.5 % (42-75); PLATELET COUNT 308 X10'3 (140-440); RED BLOOD COUNT 4.65 X10'6 (4.70-6.10); RED CELL DISTRIBUTION WIDTH 14.3 % (11.5-14.5); WHITE BLOOD COUNT 7.9 X10'3 (4.5-11.0)
[2019-03-25 10:05] LABS: ALANINE AMINOTRANSFERASE 23 U/L (12-78); ALBUMIN 3.4 G/DL (3.4-5.0); ALKALINE PHOSPHATASE 103 IU/L (46-116); ANION GAP 6 (8-16); ASPARTATE AMINO TRANSFERASE 9 U/L (10-37); BILIRUBIN,TOTAL 0.3 MG/DL (0.1-1.0); BLOOD UREA NITROGEN 10 MG/DL (7-18); BUN/CREATININE RATIO 13.2 (5.4-32.0); CHLORIDE 106 MMOL/L (99-107); CREATININE 0.76 MG/DL (0.60-1.10); GLUCOSE 87 MG/DL (70-104); POTASSIUM 3.8 MMOL/L (3.5-5.1); SODIUM 138 MMOL/L (135-145); TOTAL CARBON DIOXIDE 26.2 MMOL/L (24-32); TOTAL PROTEIN 6.7 G/DL (6.4-8.2); eGFR > 90 ML/MIN
[2019-03-25 10:07] LABS: ETHANOL < 0.010 GM/DL (0.0-0.010)
--- NOTE | 2019-03-25 11:44 | NUR ---
PT UP TO BATHROOM WITH RADHA
[2019-03-25 12:07] LABS: URINE AMPHETAMINE SCREEN NEGATIVE (Neg); URINE BARBITUATE SCREEN NEGATIVE (Neg); URINE BENZODIAZEPINES SCREEN NEGATIVE (Neg); URINE CANNABINOID SCREEN NEGATIVE (Neg); URINE COCAINE SCREEN NEGATIVE (Neg); URINE METHADONE SCREEN NEGATIVE (Neg); URINE OPIATE SCREEN POSITIVE (Neg); URINE PHENCYCLIDINE SCREEN NEGATIVE (Neg)
--- NOTE | 2019-03-25 12:25 | NUR ---
PACKET FAXED TO [facility]
--- NOTE | 2019-03-25 13:48 | NUR ---
PT ASSISTED TO THE RESTROOM,PT COOPERATIVE FOLLOW COMMANDS.
--- NOTE | 2019-03-25 14:32 | NUR ---
PT RESING IN BED WITH BLANKET ON,NO DISTRESS NOTED,WILL CONT TO MONITOR.
--- NOTE | 2019-03-25 15:35 | NUR ---
pt resting in bed asked about the medication he takes ,pt said he only take invega,pt said he does not remember about any other medication read the medication to pt but unable to recall.
--- NOTE | 2019-03-25 17:07 | NUR ---
pt sleeping at this time.no distress noted ,will cont to monitor.
--- NOTE | 2019-03-25 19:00 | NUR ---
Pt eating dinner.
--- NOTE | 2019-03-25 20:00 | NUR ---
Pt resting quietly, respirations normal, no s/s of distress.
--- NOTE | 2019-03-25 21:05 | NUR ---
Pt resting quietly, respirations normal, no s/s of distress.
--- NOTE | 2019-03-25 22:00 | NUR ---
Pt resting quietly, respirations normal, no s/s of distress.
--- NOTE | 2019-03-25 23:20 | NUR ---
Pt resting quietly, respirations normal, no s/s of distress.
--- NOTE | 2019-03-26 00:15 | NUR ---
Pt offered another blanket. Pt resting quietly, respirations normal, no s/s of distress.
--- NOTE | 2019-03-26 01:45 | NUR ---
Pt resting quietly, respirations normal, no s/s of distress.
--- NOTE | 2019-03-26 03:00 | NUR ---
Pt resting quietly, respirations normal, no s/s of distress.
--- NOTE | 2019-03-26 03:46 | NUR ---
Pt resting quietly, respirations normal, no s/s of distress.
--- NOTE | 2019-03-26 04:46 | NUR ---
Pt resting quietly, respirations normal, no s/s of distress.
--- NOTE | 2019-03-26 11:11 | NUR ---
PT RESTING ,IN NO ACUTE DISTRESS.
[2019-03-26] MEDS ORDERED: LORazepam 1 MG tablet PO ONE (16:35)
[2019-03-26 17:15] VITALS: BP 111/67
--- NOTE | 2019-03-26 22:14 | NUR ---
Pt was given a brown bag lunch upon discharge.
== END 2019-03-26 22:18 | disposition home or self-care (01) ==
LOC: ER 09:14
DX: R45.851 Suicidal ideations (principal); F31.9 Bipolar disorder, unspecified; F41.9 Anxiety disorder, unspecified; F20.9 Schizophrenia, unspecified; G89.29 Other chronic pain; I10 Essential (primary) hypertension; F12.90 Cannabis use, unspecified, uncomplicated; F15.90 Other stimulant use, unspecified, uncomplicated; Z56.0 Unemployment, unspecified; Z59.0 Homelessness; Z88.8 Allergy status to other drugs, medicaments and biological substances; Z79.899 Other long term (current) drug therapy
CPT/HCPCS: 36415; 80053; 80305; 80320; 85025; 99284

== ENCOUNTER 2019-04-05 14:29 | Emergency (ER) | payer MEDICAID ==
[~2019-04-05] VITALS: Ht 180.3 cm; Wt 101.3 kg
[2019-04-05 14:58] LABS: COLOR,URINE YELLOW (Yellow); GLUCOSE, URINE NEGATIVE (Neg); KETONES,URINE NEGATIVE (Neg); LEUKOCYTE ESTERASE ,URINE NEGATIVE (Neg); NITRITES, URINE NEGATIVE (Neg); OCCULT BLOOD,URINE NEGATIVE (Neg); PROTEIN,URINE 30 mg/dl (Neg); UROBILINOGEN,URINE 0.2 E.U/dL (0.2-1.0)
[2019-04-05 15:03] LABS: URINE AMPHETAMINE SCREEN POSITIVE (Neg); URINE BARBITUATE SCREEN NEGATIVE (Neg); URINE BENZODIAZEPINES SCREEN NEGATIVE (Neg); URINE CANNABINOID SCREEN NEGATIVE (Neg); URINE COCAINE SCREEN NEGATIVE (Neg); URINE METHADONE SCREEN NEGATIVE (Neg); URINE OPIATE SCREEN NEGATIVE (Neg); URINE PHENCYCLIDINE SCREEN NEGATIVE (Neg)
[2019-04-05 15:06] LABS: CLARITY,URINE SLIGHTLY CLOUDY (Clear); UA COLLECTION TYPE CLN CATCH MIDSTREAM
[2019-04-05 15:07] LABS: MUCUS STRANDS MANY /LPF (Neg); RBC,URINE 0-2 /HPF (0-2); SQUAMOUS EPITHELIAL CELL,UR FEW /LPF (FEW); WBC,URINE 0-4 /HPF (0-4)
[2019-04-05 15:08] LABS: BACTERIA,URINE FEW /HPF (Neg)
[2019-04-05 15:09] LABS: AMORPHOUS URATES 1+; SPERM FEW /HPF (NEGATIVE)
[2019-04-05 15:36] LABS: BASOPHILS % (AUTO) 0.5 % (0-1); EOSINOPHILS # (AUTO) 0.1 X10'3 (0-0.9); EOSINOPHILS % (AUTO) 0.7 % (0-6); HEMATOCRIT 39.3 % (42.0-52.0); HEMOGLOBIN 13.2 g/dl (14.0-17.9); LYMPHOCYTES # (AUTO) 2.3 X10'3 (1.1-4.8); LYMPHOCYTES % (AUTO) 24.5 % (21-51); MEAN CORPUSCULAR HEMOGLOBIN 29.3 PG (27.0-31.0); MEAN CORPUSCULAR HGB CONC 33.7 g/dL (33.0-36.5); MEAN CORPUSCULAR VOLUME 87.1 FL (78-98); MEAN PLATELET VOLUME 6.9 FL (7.4-10.4); MONOCYTES # (AUTO) 0.6 X10'3 (0-0.9); NEUTROPHILS # (AUTO) 6.2 X10'3 (1.8-7.7); NEUTROPHILS % (AUTO) 67.3 % (42-75); PLATELET COUNT 275 X10'3 (140-440); RED BLOOD COUNT 4.51 X10'6 (4.70-6.10); RED CELL DISTRIBUTION WIDTH 14.7 % (11.5-14.5); WHITE BLOOD COUNT 9.2 X10'3 (4.5-11.0)
[2019-04-05 15:49] LABS: ALANINE AMINOTRANSFERASE 28 U/L (12-78); ALBUMIN 4.2 G/DL (3.4-5.0); ALBUMIN/GLOBULIN RATIO 1.2 (1.1-1.5); ALKALINE PHOSPHATASE 76 IU/L (46-116); ANION GAP 10 (8-16); ASPARTATE AMINO TRANSFERASE 25 U/L (10-37); BILIRUBIN,TOTAL 1.3 MG/DL (0.1-1.0); BLOOD UREA NITROGEN 22 MG/DL (7-18); BUN/CREATININE RATIO 19.8 (5.4-32.0); CALCIUM 9.2 MG/DL (8.5-10.1); CHLORIDE 105 MMOL/L (99-107); CREATININE 1.11 MG/DL (0.60-1.10); ETHANOL < 0.010 GM/DL (0.0-0.010); GLUCOSE 83 MG/DL (70-104); POTASSIUM 3.7 MMOL/L (3.5-5.1); SODIUM 142 MMOL/L (135-145); TOTAL CARBON DIOXIDE 26.8 MMOL/L (24-32); TOTAL PROTEIN 7.6 G/DL (6.4-8.2); eGFR 79 ML/MIN
[2019-04-05] MEDS ORDERED: OLANZapine **IM** 10 mg inj. IM ONE (18:15)
[2019-04-05] MEDS ORDERED: diphenhydrAMINE 50 mg/ml inj IM ONE (18:15)
--- NOTE | 2019-04-05 19:12 | NUR ---
Unable to complete Med Rec due to patient condition. Patient was hallucinating and had just been administered Benadryl and Zyprexa when assumed care, now sleeping.
--- NOTE | 2019-04-05 20:35 | NUR ---
Tavia from [facility] called, requested TSH.
--- NOTE | 2019-04-05 20:51 | NUR ---
Tavia ([facility]) notified TSH pending.
--- NOTE | 2019-04-05 22:38 | NUR ---
Lexi bob [facility] called and stated patient has been accepted by [facility] @2114, and they will pick him up in the morning ("they want him there by 8").
--- NOTE | 2019-04-06 01:27 | NUR ---
pt sleeping quietly in bed,regular and normal respiration,no distress noted,will cont to monitor.
[2019-04-06 05:37] VITALS: BP 95/55
--- NOTE | 2019-04-06 06:25 | NUR ---
Patient sleeping on right side. No distress observed. Continue to monitor.
[2019-04-06] MEDS ORDERED: OLANZapine 2.5MG tablet PO SCH (08:00)
== END 2019-04-06 08:20 ==
LOC: ER 14:29
DX: R45.851 Suicidal ideations (principal); I10 Essential (primary) hypertension; G89.29 Other chronic pain; F41.9 Anxiety disorder, unspecified; F31.9 Bipolar disorder, unspecified; F20.9 Schizophrenia, unspecified; F12.90 Cannabis use, unspecified, uncomplicated; F15.90 Other stimulant use, unspecified, uncomplicated; Z56.0 Unemployment, unspecified; Z88.8 Allergy status to other drugs, medicaments and biological substances; Z79.899 Other long term (current) drug therapy
CPT/HCPCS: 36415; 80053; 80305; 80320; 81001; 84443; 85025; 96372; 99285; J1200; J3490; 99284

== ENCOUNTER → 2020-02-15 | Emergency (ER) | payer MEDICAID, OTHER ==
[~2020-02-15] VITALS: Ht 180.3 cm; Wt 97.8 kg
[~2020-02-15] MED LIST changes: +LORazepam 1 MG tablet PO ONE; +LORazepam 2 mg/ml vial IM ONE; -MECL-111 PO; +MECL-159 PO; +NO HOME MEDS; +diphenhydrAMINE 25mg capsule PO ONE; +diphenhydrAMINE 50 mg/ml inj IM ONE; +haloperidol lactate 5mg/ml inj IM ONE
--- NOTE | 2020-02-15 10:40 | NUR ---
Pt is settled in the bed at this time. Pt reports inability to void currently.
[2020-02-15 11:24] LABS: EOSINOPHILS # (AUTO) 0.2 X10'3 (0-0.9); HEMOGLOBIN 14.2 g/dl (14.0-17.9); MEAN CORPUSCULAR HEMOGLOBIN 29.4 PG (27.0-31.0); MEAN PLATELET VOLUME 6.9 FL (7.4-10.4); PLATELET COUNT 300 X10'3 (140-440)
[2020-02-15 11:26] LABS: BASOPHILS % (AUTO) 0.9 % (0-1); EOSINOPHILS % (AUTO) 3.9 % (0-6); HEMATOCRIT 41.9 % (42.0-52.0); LYMPHOCYTES # (AUTO) 1.4 X10'3 (1.1-4.8); LYMPHOCYTES % (AUTO) 26.9 % (21-51); MEAN CORPUSCULAR HGB CONC 33.8 g/dL (33.0-36.5); MONOCYTES # (AUTO) 0.3 X10'3 (0-0.9); MONOCYTES % (AUTO) 6.5 % (2-12); NEUTROPHILS # (AUTO) 3.1 X10'3 (1.8-7.7); NEUTROPHILS % (AUTO) 61.8 % (42-75); RED BLOOD COUNT 4.81 X10'6 (4.70-6.10); RED CELL DISTRIBUTION WIDTH 13.4 % (11.5-14.5)
--- NOTE | 2020-02-15 11:40 | NUR ---
No change in condition, resting with even and unlabored respirations. Pt near nurse's station.
[2020-02-15 11:41] LABS: ALANINE AMINOTRANSFERASE 51 U/L (12-78); ALBUMIN 3.7 G/DL (3.4-5.0); ALBUMIN/GLOBULIN RATIO 1.2 (1.1-1.5); ALKALINE PHOSPHATASE 89 IU/L (46-116); ANION GAP 11 (8-16); ASPARTATE AMINO TRANSFERASE 44 U/L (10-37); BILIRUBIN,TOTAL 0.6 MG/DL (0.1-1.0); BLOOD UREA NITROGEN 12 MG/DL (7-18); BUN/CREATININE RATIO 9.2 (5.4-32.0); CALCIUM 8.6 MG/DL (8.5-10.1); CHLORIDE 107 MMOL/L (99-107); GLUCOSE 90 MG/DL (70-104); POTASSIUM 3.3 MMOL/L (3.5-5.1); SODIUM 143 MMOL/L (135-145); TOTAL CARBON DIOXIDE 25.4 MMOL/L (24-32); TOTAL PROTEIN 6.9 G/DL (6.4-8.2); eGFR 65 ML/MIN
[2020-02-15 11:52] LABS: ETHANOL < 0.010 GM/DL (0.0-0.010)
--- NOTE | 2020-02-15 12:00 | NUR ---
pt is sleeping. no concerns at this time
--- NOTE | 2020-02-15 13:00 | NUR ---
pt is sleeping. no concerns at this time
--- NOTE | 2020-02-15 14:00 | NUR ---
pt is sleeping. no concerns at this time
--- NOTE | 2020-02-15 15:00 | NUR ---
pt is sleeping. no concerns at this time
--- NOTE | 2020-02-15 16:19 | NUR ---
pt is sleeping.
--- NOTE | 2020-02-15 17:11 | NUR ---
pt is resting no issues
--- NOTE | 2020-02-15 17:57 | NUR ---
pt is sleeping
--- NOTE | 2020-02-15 19:07 | NUR ---
PT CONTINUES TO SLEEP. PT DOES NOT LOOK TO BE IN ANY DISTRESS OR DISCOMFORT. PT BREATHING IS REGULAR. BP IS LOW BUT MAP IS WNL- WILL CONTINUE TO MONITOR. UNABLE TO GET URINE SAMPLE AT THIS TIME.
--- NOTE | 2020-02-15 20:02 | NUR ---
PT AWAKES WITH BP CHECK; DOES NOT SEEM TO BE IN ANY DISTRESS. CURRENT BP IS 99/39 (MAP OF 59). WILL UPDATE ED MD. RN WILL CONTINUE TO MONITOR.
--- NOTE | 2020-02-15 20:13 | NUR ---
UPDATED ED MD OF PT'S BP; REQUESTING A LINE TO BE PLACED AND & A LITER GIVEN IF POSSIBLE. WILL GET OTHER VITALS WELL.
--- NOTE | 2020-02-15 20:24 | NUR ---
CURRENT VITALS RECORDED; ED MD BAEHR UPDATED- NO NEED FOR A LINE PLACEMENT AT THIS TIME PER MD. WILL CONTINUE TO MONITOR.
--- NOTE | 2020-02-15 21:51 | NUR ---
PT SLEEPING WITH NO SIGNS OF DISTRESS NOTED. PT'S BREATHING REGULAR. WILL CONTINUE TO MONITOR.
--- NOTE | 2020-02-15 22:34 | NUR ---
PT CONTINUES TO SLEEP. BREATHING REGULAR; NO DISTRESS OR DISCOMFORT NOTED. WILL CONT TO MONITOR.
--- NOTE | 2020-02-15 23:55 | NUR ---
PT CONTINUES TO SLEEP. BREATHING IS REGULAR AND WNL. DOES NOT LOOK TO BE IN ANY DISTRESS OR DISCOMFORT. WILL CONT TO MONITOR.
--- NOTE | 2020-02-16 00:59 | NUR ---
PT CONTINUES TO SLEEP; BREATHING IS REGULAR. RN WILL CONT TO MONITOR.
--- NOTE | 2020-02-16 02:32 | NUR ---
PT ASLEEP. BREATHING IS REGULAR. NO SIGNS OF DISTRESS. WILL CONT TO MONITOR.
--- NOTE | 2020-02-16 03:02 | NUR ---
PT AWAKE AND ATE DINNER. PT ABLE TO GIVE URINE SAMPLE.
[2020-02-16 03:23] LABS: CLARITY,URINE SLIGHTLY CLOUDY (Clear); COLOR,URINE YELLOW (Yellow); GLUCOSE, URINE NEGATIVE (Neg); KETONES,URINE 15 mg/dl (Neg); LEUKOCYTE ESTERASE ,URINE NEGATIVE (Neg); NITRITES, URINE NEGATIVE (Neg); OCCULT BLOOD,URINE NEGATIVE (Neg); PROTEIN,URINE NEGATIVE (Neg)
[2020-02-16 03:29] LABS: UA COLLECTION TYPE CLN CATCH MIDSTREAM
[2020-02-16 03:31] LABS: BACTERIA,URINE FEW /HPF (Neg); RBC,URINE NONE SEEN /HPF (0-2); SQUAMOUS EPITHELIAL CELL,UR MODERATE /LPF (FEW); WBC,URINE 0-4 /HPF (0-4)
[2020-02-16 03:35] LABS: URINE AMPHETAMINE SCREEN POSITIVE (Neg); URINE BARBITUATE SCREEN NEGATIVE (Neg); URINE BENZODIAZEPINES SCREEN NEGATIVE (Neg); URINE CANNABINOID SCREEN NEGATIVE (Neg); URINE COCAINE SCREEN NEGATIVE (Neg); URINE METHADONE SCREEN NEGATIVE (Neg); URINE OPIATE SCREEN NEGATIVE (Neg); URINE PHENCYCLIDINE SCREEN NEGATIVE (Neg)
--- NOTE | 2020-02-16 04:21 | NUR ---
PT SLEEPING WITH NO SIGNS OF DISTRESS OR DISCOMFORT. RN WILL CONTINUE TO MONITOR.
--- NOTE | 2020-02-16 05:49 | NUR ---
PT SLEEPING WITH NORMAL BREATHING RATE; WILL CONTINUE TO MONITOR.
--- NOTE | 2020-02-16 09:54 | NUR ---
PT APPEAR SLEEPY ,RR EVEN AND UNLABORED ,WILL CONT TO MONITOR.
--- NOTE | 2020-02-16 10:50 | NUR ---
pt resting in bed quietly,changed his poistion to rgt lateral position.
--- NOTE | 2020-02-16 11:17 | NUR ---
pt with [facility] ophthalmic medical assistant.will cont to monitor.
--- NOTE | 2020-02-16 11:21 | NUR ---
Sarah rocha in ED - 02/16/20 at 1447 by LISA osei has sent requested to [facility] [place] also [facility] [place].
--- NOTE | 2020-02-16 12:15 | NUR ---
pt on 5150 hold by [place] [facility] railroad car checker vj.
--- NOTE | 2020-02-16 13:32 | NUR ---
pt up in bed eating his lunch,requested for 2 more cups of orange juice,given to the pt ,pt denies any other concern will cont to monitor.
--- NOTE | 2020-02-16 14:41 | NUR ---
pt is sleeping in his bed o lft lateral position,RR even and unlabored,will cont to monitor.
--- NOTE | 2020-02-16 15:49 | NUR ---
pt appear sleeping at this time ,RR even ,no distress noted.will cont to monitor.
--- NOTE | 2020-02-16 17:48 | NUR ---
pt went to use restroom at this time ,denies any pain at this time.rafal harman taking pt vitals ,pt requested for juice,will give it to pt and also informed that dinner will be here shortly.
--- NOTE | 2020-02-16 18:45 | NUR ---
Patient is sleeping on his left side in bed. In view from nurses station.
--- NOTE | 2020-02-16 19:48 | NUR ---
Patient has self repositioned self into a supine position. Frequent rounding is being done for patient safety.
--- NOTE | 2020-02-16 20:09 | NUR ---
Breaking primary RN. Pt given juice and a sandwich. Pt denies any further needs at this time.
--- NOTE | 2020-02-16 21:26 | NUR ---
Patient is sleeping on his left side. No distress.
--- NOTE | 2020-02-16 22:12 | NUR ---
Patient is sleeping on his right side.
--- NOTE | 2020-02-16 23:30 | NUR ---
Patient sleeping on his right side, no distress.
--- NOTE | 2020-02-17 00:51 | NUR ---
Patient is sleeping on his left side in bed, in view from nursing station.
--- NOTE | 2020-02-17 01:03 | NUR ---
Patient sleeping on his right side. Color is good, patient is warm and dry.
--- NOTE | 2020-02-17 01:05 | NUR ---
Patients mother needs to be contacted in am to gain medication information. No external med rec is present.
--- NOTE | 2020-02-17 03:02 | NUR ---
Patient sleeping in supine position. He is pink, warm, and dry. Normal resp.
--- NOTE | 2020-02-17 04:22 | NUR ---
Patient sleeping on his left side in bed. Patient has been repositioning himself.
--- NOTE | 2020-02-17 07:00 | NUR ---
Pt. is asleep in bed. Normal R&R of respirations noted.
--- NOTE | 2020-02-17 09:00 | NUR ---
Pt. ate his breakfast. RN did 1:1 assessment at bedside. Pt. reports feeling suicidal without a plan. Pt. denies A/V hallucinations. When asked about why pt. came here, pt. states, "I was suicidal". Pt. offers minimal answers to questions, not wanting to elaborate. Pt. then layed down.
--- NOTE | 2020-02-17 11:00 | NUR ---
Pt. asleep laying on his left side. Pt. has normal rate and rhythm of respirations. Is in no apparent distress.
--- NOTE | 2020-02-17 13:34 | NUR ---
Breaking primary RN. Pt resting quietly in bed.
--- NOTE | 2020-02-17 14:58 | NUR ---
PT ACCEPTED TO [facility], ACCEPTING DR. RAE. ETA [address] [employer] APPRENTICE TIME.
--- NOTE | 2020-02-17 15:30 | NUR ---
Pt. asleep in left lateral side. Pt.'s breathing R&R even and unlabored. Pt. in no apparent distress. Will continue to monitor.
[2020-02-17 17:18] VITALS: BP 101/63
--- NOTE | 2020-02-17 17:30 | NUR ---
Pt. awake and walked to rest room without a shirt. Pt. told to get a shirt on and pt. stated, "It's on my bed" and continued to walk to the rest room. Pt. informed that he is going to [facility] tonight at 19:45 and pt. responded positively. Pt. continues to voice SI without a plan. Pt. put his shirt on and layed down in his bed.
--- NOTE | 2020-02-17 19:20 | NUR ---
Pt requested something to help him relax prior to being transported to the accepting mental health facility. Dr. Ramos notified and order for medications received. Pt reports he does not want the Haldol injection at this time.
== END | disposition home or self-care (01) ==
LOC: ER 10:16
DX: F20.0 Paranoid schizophrenia (principal); F15.10 Other stimulant abuse, uncomplicated; R45.851 Suicidal ideations; I10 Essential (primary) hypertension; G89.29 Other chronic pain; F41.9 Anxiety disorder, unspecified; F31.9 Bipolar disorder, unspecified; F20.9 Schizophrenia, unspecified; F12.90 Cannabis use, unspecified, uncomplicated; Z56.0 Unemployment, unspecified; Z59.0 Homelessness; Z79.899 Other long term (current) drug therapy
CPT/HCPCS: 36415; 80053; 80305; 80320; 81001; 84443; 85025; 96372; 99285; J1200; J1630; J2060

== ENCOUNTER 2020-02-22 16:44 | Emergency (ER) | payer MEDICAID, OTHER ==
[~2020-02-22] VITALS: Ht 180.3 cm; Wt 91.0 kg
[~2020-02-22 16:44] MED LIST changes: -FLUO20CA39 PO; -HYDR-4383 PO; -LORazepam 1 MG tablet PO ONE; -LORazepam 2 mg/ml vial IM ONE; -MECL-159 PO; -PROP20TA6 PO; -RISP1TAB3 PO; -diphenhydrAMINE 25mg capsule PO ONE; -diphenhydrAMINE 50 mg/ml inj IM ONE; -haloperidol lactate 5mg/ml inj IM ONE
[2020-02-22] MEDS ORDERED: normal saline 1000ML IV soln IVB ONE (17:00)
[2020-02-22 18:06] VITALS: BP 124/87
== END 2020-02-22 18:03 | disposition home or self-care (01) ==
LOC: ER 16:45
DX: T67.5XXA Heat exhaustion, unspecified, initial encounter (principal); E86.0 Dehydration; R42 Dizziness and giddiness; R45.851 Suicidal ideations; R19.7 Diarrhea, unspecified; I10 Essential (primary) hypertension; G89.29 Other chronic pain; F41.9 Anxiety disorder, unspecified; F31.9 Bipolar disorder, unspecified; F20.9 Schizophrenia, unspecified; F17.200 Nicotine dependence, unspecified, uncomplicated; F12.90 Cannabis use, unspecified, uncomplicated; F15.90 Other stimulant use, unspecified, uncomplicated; Z59.0 Homelessness; Z56.0 Unemployment, unspecified; X30.XXXA Exposure to excessive natural heat, initial encounter; Y93.89 Activity, other specified; Y92.89 Other specified places as the place of occurrence of the external cause; Y99.8 Other external cause status
CPT/HCPCS: 96360; 99283; J7030